=== PATIENT | female | born 1970 | race Caucasian/White ===

== ENCOUNTER 2017-08-29 08:45 | Emergency (ER) | payer SELFPAY ==
[2017-08-29] MEDS ORDERED: NORMAL SALINE 1000 ML 1,000 ML IV PRN (09:29)
--- NOTE | 2017-08-29 09:32 | ER Document Report ---
ED Psych Disorder / Suicide - General Mode of Arrival: Ambulatory Information source: Patient <ALFREDA BASHIR - Last Filed: 08/29/17 15:11> <TONY CASTRO - Last Filed: 08/30/17 09:18> <JULIANNA CURRY - Last Filed: 08/30/17 12:06> - General Stated Complaint: POSSIBLE OVERDOSE Time Seen by Provider: 08/29/17 09:27 Notes: Chief complaint: Suicidal/overdose History of complain:( obtained from----patient) 47 years old female took 30 tablets of Celexa 40 mg prior to arrival and vomited. With the intention of hurting herself. She was brought in alert and oriented 3. She will not give anymore history. Onset: Just prior to arrival Duration: Just prior to arrival Severity: Severe Quality: Depressed Context: Depressed Exacerbating factor and relieving factors: Not applicable REVIEW OF SYSTEMS: CONSTITUTIONAL : Denies fever, chills, or sweats. Denies recent illness. EENT: Denies eye, ear, throat, or mouth pain or symptoms. Denies nasal or sinus congestion or discharge. Denies throat, tongue, or mouth swelling or difficulty swallowing. CARDIOVASCULAR: Denies chest pain. Denies palpitations or racing or irregular heart beat. Denies ankle edema. RESPIRATORY: Denies cough, cold, or chest congestion. Denies shortness of breath, difficulty breathing, or wheezing. GASTROINTESTINAL: Denies distention. Denies nausea, vomiting, or diarrhea. Denies blood in vomitus, stools, or per rectum. Denies black, tarry stools. Denies constipation. GENITOURINARY: Denies difficulty urinating, painful urination, burning, frequency, blood in urine, or discharge. FEMALE GENITOURINARY: Denies vaginal bleeding, heavy or abnormal periods, irregular periods. Denies vaginal discharge or odor. MUSCULOSKELETAL: Denies back or neck pain or stiffness. Denies joint pain or swelling. SKIN: Denies rash, lesions or sores. HEMATOLOGIC : Denies easy bruising or bleeding. LYMPHATIC: Denies swollen, enlarged glands. NEUROLOGICAL: Denies confusion or altered mental status. Denies passing out or loss of consciousness. Denies dizziness or lightheadedness. Denies headache. Denies weakness or paralysis or loss of use of either side. Denies problems with gait or speech. Denies sensory loss, numbness, or tingling. Denies seizures. PSYCHIATRIC: As per history of complain ALL OTHER SYSTEMS REVIEWED AND NEGATIVE. PHYSICAL EXAMINATION: GENERAL: Well-appearing, well-nourished and in no acute distress. HEAD: Atraumatic, normocephalic. EYES: Pupils equal round and reactive to light, extraocular movements intact, conjunctiva are normal. ENT: Nares patent, oropharynx clear without exudates. Moist mucous membranes. NECK: Normal range of motion, supple without lymphadenopathy LUNGS: Breath sounds clear to auscultation bilaterally and equal. No wheezes rales or rhonchi. HEART: Regular rate and rhythm without murmurs ABDOMEN: Soft, nontender, nondistended abdomen. No guarding, no rebound. No masses appreciated. Examination of genitals-deferred Musculoskeletal: Normal range of motion, no pitting or edema. No cyanosis. NEUROLOGICAL: Cranial nerves grossly intact. Normal speech, normal gait. Normal sensory, motor exams PSYCH: Depressed and suicidal SKIN: Warm, Dry, normal turgor, no rashes or lesions noted. Dictation was performed using [employer] voice recognition software (ALFREDA BASHIR) - [facility] Notes: Dictated (ALFREDA BASHIR) - Related Data Allergies/Adverse Reactions: No Known Allergies Allergy (Verified 01/07/13 07:49) Past Medical History - General Information source: Patient, Emergency Med Personnel - Social History Smoking Status: Current Every Day Smoker Cigarette use (# per day): No Chew tobacco use (# tins/day): No Smoking Education Provided: No Frequency of alcohol use: Occasional Drug Abuse: None Family History: Reviewed & Not Pertinent Psychiatric Medical History: Reports: Hx Depression Past Surgical History: Reports: Hx Tubal Ligation - Immunizations Hx Diphtheria, Pertussis, Tetanus Vaccination: Yes <ALFREDA BASHIR - Last Filed: 08/29/17 15:11> Review of Systems <ALFREDA BASHIR - Last Filed: 08/29/17 15:11> <TONY CASTRO - Last Filed: 08/30/17 09:18> <JULIANNA CURRY - Last Filed: 08/30/17 12:06> - Review of Systems Notes: Dictated (ALFREDA BASHIR) Physical Exam <ALFREDA BASHIR - Last Filed: 08/29/17 15:11> <TONY CASTRO - Last Filed: 08/30/17 09:18> <JULIANNA CURRY - Last Filed: 08/30/17 12:06> - Vital signs Vitals: Resp Pulse Ox 20 96 08/29/17 08:56 08/29/17 08:56 - Notes Notes: Dictated (ALFREDA BASHIR) Course - Laboratory Result Diagrams: 08/29/17 08:15 08/29/17 10:26 <ALFREDA BASHIR - Last Filed: 08/29/17 15:11> - Laboratory Result Diagrams: 08/29/17 08:15 08/29/17 10:26 <TONY CASTRO - Last Filed: 08/30/17 09:18> - Laboratory Result Diagrams: 08/29/17 08:15 08/29/17 10:26 <JULIANNA CURRY - Last Filed: 08/30/17 12:06> - Vital Signs Vital signs: Temp Pulse Resp BP Pulse Ox 98.0 F 51 L 13 109/69 98 08/30/17 07:24 08/30/17 07:24 08/30/17 07:24 08/30/17 07:24 08/30/17 07:24 - Laboratory Laboratory results interpreted by me: 08/29/17 08/29/17 08/29/17 08:15 10:26 14:10 WBC 11.6 H Absolute Neutrophils 8.3 H Creatinine 0.51 L Total Protein 6.1 L Urine Blood SMALL H Ur Leukocyte Esterase TRACE H Salicylates < 1.0 L Acetaminophen < 10 L Discharge <SUDEEPALFREDA Villatoro - Last Filed: 08/29/17 15:11> <TONY CASTRO - Last Filed: 08/30/17 09:18> <JULIANNA CURRY - Last Filed: 08/30/17 12:06> - Discharge 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 Suicidal behavior Qualifiers: Attempted self-injury: with attempted self-injury Qualified Code(s): T14.91XA - Suicide attempt, initial encounter Overdose Qualifiers: Encounter type: initial encounter Injury intent: intentional self-harm Qualified Code(s): T50.902A - Poisoning by unspecified drugs, medicaments and biological substances, intentional self-harm, initial encounter Opiate addiction Qualifiers: Substance use status: uncomplicated Qualified Code(s): F11.20 - Opioid dependence, uncomplicated Disposition: HOME, SELF-CARE Additional Instructions: You were seen at the Emergency Department and evaluated by the Medical and Behavioral Health Teams for suicidal ideation and ongoing substance abuse problems, and now determined appropriate for discharge. You were held overnight for evaluation and observation. You are encouraged to follow through with [facility] treatment, either [facility] or [facility], and to follow through with [facility] who can link you to further services. Psychoeducation was provided regarding available services and healthy coping skills that could be used in times of crisis. [facility] will link you to an appropriate provider in the area for medication management if you choose to engage in such services. DEPRESSION: Your evaluation reveals that you have depression. While symptoms may be vague, they often include disturbance of sleep, fatigue, loss of appetite, and general loss of interest in life. While depression may be a side effect of drugs, or a reaction to a major change in your life, many cases have no known cause. If depression is acute, and related to a major loss in your life, you can expect it to clear completely with time. If you have been depressed a long time , are prone to repeated bouts of depression or low mood, or have been thinking of suicide, get help. Depression can be treated with anti-depressant medication and counselling. Long-term depression will often take a few weeks to clear, even with appropriate medication. Follow-up care is important. SUICIDAL IDEATION: Suicidal ideation is a common medical term for thoughts about suicide, which may be as detailed as a formulated plan, without the suicidal act itself. Although most people who undergo suicidal ideation do not commit suicide, some go on to make suicide attempts. The range of suicidal ideation varies greatly from fleeting to detailed planning, role playing, and unsuccessful attempts. While thoughts about suicide are common, most people do not carry out serious actions to commit suicide. Based upon your evaluation and discussion with you, we do not believe you are currently at risk to act upon your thoughts of suicide. You have agreed to return to the Emergency Department, at any time , if you feel inclined to act upon your suicidal thoughts. FOLLOW-UP CARE: If you have been referred to a physician for follow-up care, call the physician s office for an appointment as you were instructed or within the next two days. If you experience worsening or a significant change in your symptoms, notify the physician immediately or return to the Emergency Department at any time for re-evaluation. NARCOTIC / OPIOID ABUSE: Narcotics and opioids are pain-relieving drugs that are often abused. They are addicting. Narcotics cause euphoria, but it often takes increasing amounts to "feel good" and avoid withdrawal symptoms. Overdose of narcotics causes small pupils, coma, and decreased breathing. It's a common cause of . Purity of street narcotics is unpredictable. Injection of narcotics is risky for abscesses, endocarditis (heart infection), pneumonia, and AIDS. Withdrawal from narcotics causes goose bumps, watery mouth, sweating, nasal congestion, muscle aches, abdominal cramps, vomiting, and diarrhea. There 's often restlessness and confusion. Treatment programs are available, but you must make the decision to quit. Medication (such as clonidine) can be prescribed to control the symptoms of withdrawal. AMPHETAMINE / METHAMPHETAMINE ABUSE: Amphetamines are addicting stimulants. Amphetamines overstimulate the nervous system and give a false feeling of power and mastery. These drugs may be obtained as prescription pills for weight loss, narcolepsy, or attention- deficit disorder. More often they're bought as an illegal street drug, methamphetamine (crank, crystal, speed). Using amphetamines repeatedly can lead to serious medical problems including malnutrition, severe depression, and paranoia. It can take increasing amounts to feel good. Eventually, there will be a "burn out." When you go off amphetamines there is a period of depression that may last for weeks or even months. High doses of amphetamines can cause seizures, confusion, hallucinations, delusions, high blood pressure, muscle damage, heart damage, or sudden . Many times these deadly complications occur even with "normal" doses. Injection of amphetamines is risky for developing abscesses, endocarditis ( heart infection), pneumonia, and AIDS. Withdrawal from amphetamines often causes anxiety, depression, and drug cravings. Some users become paranoid and psychotic. There may be cramps, nausea , and vomiting. Many treatment programs are available, but you must make the decision to quit. Medication can be prescribed to control the symptoms of amphetamine toxicity (beta blockers or benzodiazepines). Withdrawal symptoms may require tranquilizers. OVERDOSE / INGESTION: You have taken more medication than you should have. After your evaluation and care, it is felt that your overdose is not likely to be harmful or of any significant consequences to you and you are being discharged. In the future, you should be careful not to take more medications than what is prescribed for you. Although your overdose does not seem to be of any danger to you at this time, if you develop any unusual or unexpected symptoms after your discharge, you should return to the Emergency Department immediately for re-evaluation. INSTRUCTIONS FOR HOME CARE FOLLOWING DRUG OVERDOSAGE: The doctor feels it's safe for you to go home. You will need to be observed. If charcoal and a laxative was given to you, expect some loose black stools soon. Take no medications unless approved by a physician, including alcohol. If drowsy, lie on your stomach or side for sleeping to avoid aspiration if vomiting occurs. Take only liquids by mouth until there is no more nausea. Referrals: JC JIMENEZ MD [Primary Care Provider] - Follow up as needed
[2017-08-29 09:39] LABS: ABSOLUTE BASOPHILS # (AUTO) 0.1 10^3/uL (0.0-0.2); ABSOLUTE EOSINOPHILS # (AUTO) 0.1 10^3/uL (0.0-0.6); ABSOLUTE LYMPHOCYTES (AUTO) 2.6 10^3/uL (0.5-4.7); ABSOLUTE MONOCYTES (AUTO) 0.6 10^3/uL (0.1-1.4); ABSOLUTE NEUT (AUTO) 8.3 10^3/uL (1.7-8.2); BASOPHILS % (AUTO) 0.5 % (0-2); EOSINOPHILS % (AUTO) 0.7 % (0-6); HEMATOCRIT 43.2 % (36.0-47.0); LYMPHOCYTES % (AUTO) 22.3 % (13-45); MEAN CORPUSCULAR HEMOGLOBIN 31.9 pg (27.0-33.4); MEAN CORPUSCULAR HGB CONC 34.6 g/dL (32.0-36.0); MEAN CORPUSCULAR VOLUME 92 fl (80-97); MONOCYTES % (AUTO) 5.2 % (3-13); PLATELET COUNT 374 10^3/uL (150-450); RED BLOOD COUNT 4.68 10^6/uL (3.72-5.28); RED CELL DISTRIBUTION WIDTH 12.6 % (11.5-14.0); SEGMENTED NEUTROPHILS % (AUTO) 71.3 % (42-78); TOTAL CELLS COUNTED % (AUTO) 100 %; WHITE BLOOD COUNT 11.6 10^3/uL (4.0-10.5)
[2017-08-29] MEDS: NORMAL SALINE 1000 ML 1,000 ML IV ONE (09:56)
--- NOTE | 2017-08-29 10:56 | EKG REPORT ---
SEVERITY:- ABNORMAL ECG - ACCELERATED JUNCTIONAL RHYTHM BORDERLINE T ABNORMALITIES, DIFFUSE LEADS : Confirmed by: Gia Joiner MD 29-Aug-2017 10:55:31
[2017-08-29 11:15] LABS: ALANINE AMINOTRANSFERASE 31 U/L (9-52); ALBUMIN 3.6 g/dL (3.5-5.0); ALKALINE PHOSPHATASE 61 U/L (38-126); ANION GAP 10 (5-19); ASPARTATE AMINO TRANSFERASE 25 U/L (14-36); BILIRUBIN,DIRECT 0.2 mg/dL (0.0-0.4); BILIRUBIN,TOTAL 0.6 mg/dL (0.2-1.3); BLOOD UREA NITROGEN 11 mg/dL (7-20); CALCIUM 8.4 mg/dL (8.4-10.2); CARBON DIOXIDE 23 mmol/L (22-30); CHLORIDE 107 mmol/L (98-107); GLUCOSE 94 mg/dL (75-110); POTASSIUM 3.7 mmol/L (3.6-5.0); TOTAL PROTEIN 6.1 g/dL (6.3-8.2)
[2017-08-29 11:17] LABS: ACETAMINOPHEN < 10 ug/mL (10-30); ALCOHOL < 10 mg/dL (NONE DETECTED); SALICYLATE < 1.0 mg/dL (2.0-20.0)
[2017-08-29 14:38] LABS: APPEARANCE,URINE SLIGHTLY-CLOUDY; BILIRUBIN,URINE NEGATIVE (NEGATIVE); COLOR,URINE YELLOW; GLUCOSE, URINE NEGATIVE (NEGATIVE); KETONES,URINE NEGATIVE (NEGATIVE); LEUKOCYTE ESTERASE,URINE TRACE (NEGATIVE); NITRITE,URINE NEGATIVE (NEGATIVE); PROTEIN,URINE NEGATIVE (NEGATIVE); UROBILINOGEN,URINE NEGATIVE mg/dL (<2.0)
[2017-08-29 15:39] LABS: URINE AMPHETAMINES SCREEN NEGATIVE; URINE BARBITURATES SCREEN NEGATIVE; URINE BENZODIAZEPINES SCREEN NEGATIVE; URINE COCAINE SCREEN UNCONFIRMED POSITIVE; URINE MARIJUANA (THC) SCREEN UNCONFIRMED POSITIVE; URINE METHADONE SCREEN NEGATIVE; URINE PHENCYCLIDINE SCREEN NEGATIVE
[2017-08-30 07:25] VITALS: BP 109/69
--- NOTE | 2017-08-30 09:40 | ER Document Report ---
Doctor's Note Notes: 08/30/17 09:39 47-year-old female that presents after ingesting citalopram with suicidal ideations. Positive cocaine and marijuana in the drug screen. Labs as recorded otherwise. Vital signs are stable. The psychologist consultation provider has seen the patient and believe that the patient is safe to be discharged home at this time. I will reassess the patient. 08/30/17 10:11 The psychology team is seen and evaluated the patient. They do not feel that the patient meets criteria for IVC at this time. They believe that this is somewhat substance abuse. Patient would like outpatient cocaine abuse resources and treatment. They have set up integrated family services in the mobile crisis team to help pick remover the patient immediately from the emergency room and discharged for placement to a detoxification unit. Patient is very comfortable with this plan. She denies currently any suicidal or homicidal ideations. She promises to return if they should return.
--- NOTE | 2017-08-30 11:40 | PSYCHOLOGICAL NOTE ---
Psych Note - Psych Note Psych Note: Met with Patient after a reported overdose of Celexa. She indicated she took the medication because she is tired of dealing with her substance abuse problem. She reported she has been using crack/ cocaine since age 15 with multiple inpatient substance abuse rehabilitations and 1 psychiatric inpatient rehabilitation. Patient reported one previous overdose in 2013 by taking pills. She reported she is not regretful for her overdose. She indicated [facility] in [place] advised her there are no long-term inpatient rehabs in [place] that will take people without insurance. When advised that was inaccurate, there are at least three in the [facility], she stated "well, I know about [facility] but I heard that was a convict lifestyle so I don't think that is for me." I told her that it is a substance abuse rehabilitation for 18 months and many different people with many different kinds of backgrounds go to the facility and if she truly wants to beat her substance abuse addiction, she will make the sacrifice to get better, since it is better than . And, listening to rumors can be the downfall to the start of any process as they are the perception of other people. Patient was advised of [facility] in [place] and she indicated she was "too tired" to talk about anything. When advised she threw up the pills shortly after she ingested them and before EMS arrived, and she was positive for cocaine, she again stated she as too tired to talk. She was advised she was medically clear and she would be given the opportunity to stay the night but would be discharged in the morning with outpatient services and a warm handoff to [facility] who would assist with helping her get into [facility] rehab if she she was interested. She was advised she did not meet criteria for psychiatric hospitalization since her primary diagnosis is substance abuse and she was not interested in detox. She stated she agreed. She reported she was not on any current medications and has no ongoing medical conditions. Patient was drowsy but oriented to person, place, time, and circumstance. Mood was cooperative and affect was mood congruent. She endorsed suicidal ideation without intent or continued plan. She denied homicidal ideation, intent or plan. She denied auditory /visual hallucinations and no delusions were noted Thought processes were logical, linear, and organized. Conversational speech was within normal limits for rate, tone, and prosody. Intellectual abilities were estimated within the average range. Attention and concentration was poor. Insight, judgment, and impulse control was considered historically poor. DIAGNOSES: 1. 304.24 (F14.24) Cocaine Use Disorder with Cocaine Induced Depressive Disorder Impression / Plan: Patient is clear from acute psychiatric services and was medically cleared earlier in the day. Patient initially indicated she was interested in [facility] substance [facility] rehabilitation but when advised of the programs she tended to make excuses as to why she could not attend. She was not interested in detox. She stated [facility] was not helpful in the past and has not reached out to them again (it has been several years). When advised of [facility] and the services they have to offer, she was mildly interested. She was offered a warm hand off to [facility] upon discharge with the goal of them assisting with getting her into [facility] treatment. She reported she has been staying with her father or brother, whichever she could manage at the time. She reported she could return to either of their homes upon discharge. Patient will receive a warm handoff with [facility] as long as she is willing and will receive the information for [facility] [employer] treatment.ED Physician is agreement with recommendation and disposition.
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
== END 2017-08-30 12:41 | disposition home or self-care (01) ==
LOC: ER 08:45
DX: T43.222A Poisoning by selective serotonin reuptake inhibitors, intentional self-harm, initial encounter (principal); F14.94 Cocaine use, unspecified with cocaine-induced mood disorder; R11.10 Vomiting, unspecified; F11.20 Opioid dependence, uncomplicated; F17.200 Nicotine dependence, unspecified, uncomplicated
CPT/HCPCS: 93005; 99285; 96360; 36415; 80307 ×4; 85025; 80053; 81001; 93010; J7030